=== PATIENT | female | born 1960 | race Caucasian/White ===

== ENCOUNTER 2022-04-06 12:47 | Outpatient (CLI) | payer BC, SELFPAY ==
--- NOTE | 2022-04-06 13:00 | CRLHL7_ITS ---
For Patients: As a result of the Century Cures Act, medical imaging exams and procedure reports are released immediately into your electronic medical record. You may view this report before your referring provider. If you have questions, please contact your health care provider. BILATERAL SCREENING MAMMOGRAM WITH COMPUTER-AIDED DETECTION AND TOMOSYNTHESIS TECHNIQUE: CC and MLO views were obtained. These mammographic images have been obtained using full-field digital technique. These mammographic images were interpreted with the benefit of computer-aided detection. Breast Tomosynthesis was used in this interpretation. COMPARISON FILM: 09/04/2020, 08/07/2018, 02/09/2017. FINDINGS: The breasts are heterogeneously dense, which may obscure small masses IMPRESSION: There is no radiographic evidence for malignancy. ASSESSMENT: BI-RADS Category 1: Negative RECOMMENDATION: Routine screening mammogram in 1 year. A lay language report of this examination will be provided to the patient. Mateo Membreno M.D. Diagnostic Radiologist [email or web address] Transcribed: 7:55 p.m. SWATHI/Dictated by: Mateo Membreno MD @ 04/07/2022 12:37:00 PM (Electronically Signed)
== END 2022-04-06 12:48 | disposition home or self-care (01) ==
PROVIDERS: PCP Internal Medicine; Visit Provider Internal Medicine
DX: Z12.31 Encounter for screening mammogram for malignant neoplasm of breast (principal); R92.2 Inconclusive mammogram
CPT/HCPCS: 77063; 77067

== ENCOUNTER 2022-07-05 08:25 | Outpatient (CLI) | payer BC, SELFPAY ==
[2022-07-05 10:05] LABS: Chloride* 105 mmol/L (96-114)
[2022-07-05 10:06] LABS: Albumin* 4.3 g/dL (3.3-5.0); Sodium* 139 mmol/L (135-149)
[2022-07-05 10:07] LABS: Potassium* 4.5 mmol/L (3.6-5.1)
[2022-07-05 10:08] LABS: Cholesterol* 190 mg/dL (90-199)
[2022-07-05 10:09] LABS: Alkaline Phosphatase* 71 U/L (40-150); Aspartate Amino Transferase* 33 U/L (12-35); Bilirubin Total* 0.6 mg/dL (0.1-1.5); Blood Urea Nitrogen* 19 mg/dL (7-30); Carbon Dioxide* 29 mmol/L (20-32); Creatinine* 0.7 mg/dL (0.5-1.5); Estimated Glomerular Filt Rate 99 ml/min; Glucose* 87 mg/dL (60-115); Total Protein* 6.6 g/dL (6.0-8.3)
[2022-07-05 10:10] LABS: Alanine Aminotransferase* 25 U/L (4-35); Calcium* 9.4 mg/dL (8.4-10.6); HDL Cholesterol* 84 mg/dL (>=50); LDL Cholesterol Calculated 96 mg/dL (<100); Triglycerides* 51 mg/dL (40-149)
== END 2022-07-05 08:26 | disposition home or self-care (01) ==
LOC: NFLDREF 08:26
PROVIDERS: PCP Internal Medicine; Visit Provider Internal Medicine
DX: Z01.419 Encounter for gynecological examination (general) (routine) without abnormal findings (principal); Z13.6 Encounter for screening for cardiovascular disorders
CPT/HCPCS: 80053; 80061

== ENCOUNTER 2022-08-16 10:11 | Outpatient (CLI) | payer BC, SELFPAY | END 2022-08-16 10:12 | disposition home or self-care (01) | LOC: OP CLINIC 10:11 | PROVIDERS: PCP Internal Medicine; Visit Provider Surgery | DX: Z12.11 Encounter for screening for malignant neoplasm of colon (principal); K63.5 Polyp of colon; K57.30 Diverticulosis of large intestine without perforation or abscess without bleeding; Z86.010 Personal history of colon polyps | CPT/HCPCS: 45385; 88305; 99153; J2250; J3010 ==

== ENCOUNTER 2023-02-22 09:00 | Emergency (ER) | payer BC, SELFPAY ==
--- NOTE | 2023-02-22 09:02 | CRLHL7_ITS ---
For Patients: As a result of the Century Cures Act, medical imaging exams and procedure reports are released immediately into your electronic medical record. You may view this report before your referring provider. If you have questions, please contact your health care provider. Indication: Seizure, neck Pain Technique: Volumetric multidetector CT images of the head were obtained without the administration of low osmolar intravenous contrast. Comparison: None available Findings: There is no intra-axial or extra-axial fluid collection. There is no mass effect or midline shift. The ventricles and sulci are normal in size and position for age. There is mild chronic small vessel disease change within the subcortical and periventricular white matter. The brain parenchyma is otherwise preserved and attenuation and [place]-white differentiation. The orbits and their contents are grossly within normal limits. The bony calvarium is grossly intact. There is minimal mucosal thickening within the paranasal sinuses. The mastoid air cells are well aerated. Impression: Mild chronic small vessel disease change within the white matter; otherwise, no acute intracranial abnormality. Please note that all CT scans at this facility use dose modulation, iterative reconstruction, and/or weight-based dosing when appropriate to reduce radiation dose to as low as reasonably achievable. Dictated by Fred Rahman MD @ 02/22/2023 9:33:43 AM (Electronically Signed)
[2023-02-22 09:04] VITALS: BP 131/75; PULSE 71; RESP 18; TEMP 36.4; O2SAT 98; BMI 18.4
--- NOTE | 2023-02-22 09:37 | CRLHL7_ITS ---
For Patients: As a result of the Century Cures Act, medical imaging exams and procedure reports are released immediately into your electronic medical record. You may view this report before your referring provider. If you have questions, please contact your health care provider. INDICATION: Syncope. Headaches. TECHNIQUE: Sagittal T1, axial FLAIR T2 diffusion-weighted and susceptibility weighted images followed by gadolinium-enhanced sagittal axial and coronal T1 weighted images. Qizz-mg-uuwepo magnetic resonance enter. Intracranial [place] arteries. Iotc-ll-iwmtsx and gadolinium-enhanced MRA images of the carotid arteries and vertebral arteries: COMPARISON: CT brain dated 05/24/2023. FINDINGS: MRI brain: Lateral 3rd and 4th ventricles normal in size and configuration. There is no evidence of acute ischemic infarction. There are no areas of diffusion restriction. There is no evidence of intracranial hemorrhage. No focal brain edema no enhancing intra-axial or extra-axial lesion. There are few punctate foci of nonenhancing FLAIR/T2 signal hyperintensity within supratentorial white matter consistent with mild chronic microvascular ischemia or changes related to migraine. Brainstem and cerebellum appear normal. The orbits sella turcica are unremarkable there is some localized inflammation in the dependent sphenoid sinus. MRA [place]: The distal internal carotid arteries and basilar artery appear widely patent origin of the right posterior cerebral artery. The anterior middle and posterior cerebral arteries and proximal branches are patent and unremarkable. No large vessel occlusion or high-grade stenosis. No evidence of intracranial aneurysm or high-flow AV malformation. MRA carotid arteries and vertebral arteries: Bilateral common carotid arteries internal and external carotid arteries are widely patent the bilateral vertebral arteries are patent the right is congenitally dominant. Hypoplastic distal left vertebral artery. IMPRESSION: 1. No evidence of acute ischemic infarction, intracranial hemorrhage, mass or enhancing lesion. 2. Several tiny foci of FLAIR/T2 hyperintensity consistent with mild chronic microvascular ischemia or changes related to migraine. 3. No large vessel occlusion, aneurysm or AVM involving proximal cerebral arteries is seen. 4. No evidence of stenosis of the carotid arteries or dominant right vertebral artery. Hypoplastic distal left vertebral artery. Dictated by Yaakov Aceves MD @ 02/22/2023 2:10:42 PM (Electronically Signed)
[2023-02-22] MEDS: LORazepam 2 MG/ML inj 1 MG IVP (10:11)
[2023-02-22] MEDS: ONDANSETRON 2 MG/ML inj 4 MG IVP (10:19)
[2023-02-22 10:21] VITALS: BP 131/77; PULSE 62; RESP 10; O2SAT 98
[2023-02-22] MEDS: ACETAMINOPHEN 500 MG TABLET 1000 MG PO (10:40)
--- NOTE | 2023-02-22 10:54 | ED.GENADULT ---
HPI - General Adult General Date Seen: 02/22/23 Chief complaint: Syncope/Fainted Stated complaint: seizure, neck pain Time Seen by Provider: 02/22/23 09:27 Source: patient Mode of arrival: ambulatory Limitations: no limitations History of Present Illness HPI narrative: Patient is a 62-year-old woman brought in by her after a syncopal episode at home. She was in her room by herself although her heard her fall. There was a question of seizure activity as there was some shaking behavior that lasted 10-20 seconds. Notably however when she woke up she was immediately mentating normally, there was no postictal. . She did not bite her tongue, there was no loss of bowel or bladder function. She has no history of seizures. She says that the episode was preceded by a sharp pain which started in her posterior left neck, at the base of her skull, and then seem to shoot down her entire body. This was severe. She says she has been having problems with pain in the left neck and shoulder, she saw her chiropractor yesterday for this and had some work done although she specifically says that she refuses any adjustment as her brother has had a stroke which was thought may be related to chiropractic adjustment. She continues to have some pain in her neck although if she does not move or push on that area she says it is very mild. She says if she moves specific way she will get a zing of pain. She does not have radiating pain, numbness or weakness. She does have a mild headache. She has some nausea, vomited a few times. She does not have significant dizziness. She denies any chest pain, palpitations, shortness of breath. She has no history of similar symptoms. There is a family history of stroke outside of her brother as well. She has some medical history in terms of depression, anxiety, but does not have any significant vascular history. She does not smoke. Related Data Home Medications Medication Instructions Recorded Confirmed cholecalciferol (vitamin D3) 25 1,000 unit PO DAILY 07/06/22 07/06/22 mcg (1,000 unit) tablet fluticasone propionate 50 1 intranasal BID 07/06/22 07/06/22 mcg/actuation nasal spray,suspension vitamin B comp with C no.4 150 mg 1 tab PO QDAY 07/06/22 07/06/22 tablet magnesium 200 mg tablet 250 mg PO QDAY 07/07/22 07/07/22 Previous Rx's Medication Instructions Recorded lorazepam 1 mg tablet 1 mg PO QDAY PRN anxiety #30 tabs 07/07/22 sertraline 100 mg tablet 100 - 200 mg (1 - 2 x 100 mg) PO 07/07/22 QDAY Anxiety #60 tabs peg 3350-electrolytes 236 240 ml PO ONCE #4,000 mL 07/23/22 gram-22.74 gram-6.74 gram-5.86 gram solution (Golytely) dicyclomine 10 mg capsule 10 mg PO QID PRN abdominal pain 10/20/22 #56 caps Allergies Allergy/AdvReac Type Severity Reaction Status Date / Time No Known Drug Allergies Allergy Verified 07/07/22 09:16 Review of Systems Status of ROS: Reports: 10 or more systems reviewed and unremarkable except as noted in History and below [facility] Medical History Abdominal pain ?R10.9 - Unspecified abdominal pain (ICD-10) History of chronic fatigue syndrome ?Z86.69 - Personal history of other diseases of the nervous system and sense organs (ICD-10) Encounter for well woman exam with routine gynecological exam ?Z01.419 - Encounter for gynecological examination (general) (routine) without abnormal findings (ICD-10) Anxiety ?F41.9 - Anxiety disorder, unspecified (ICD-10) Surgical History Status post laparoscopic appendectomy ?Z90.49 - Acquired absence of other specified parts of digestive tract (ICD-10) Status post cone biopsy of cervix ?Z98.890 - Other specified postprocedural states (ICD-10) History of local excision of skin lesion (2016) ?Z98.890 - Other specified postprocedural states (ICD-10) Family History Mother Diabetes Sister Family history of peritoneal cancer Father Stroke Paternal Grandfather Colon cancer Social History Narrative: , artist, educator Non-smoker social drinker Exercises regularly walks daily 1-3 miles Smoking Status: Never smoker Do you use any of these nicotine containing products: None How often do you have a drink containing alcohol: 2-3 times a week How many standard drinks containing alcohol do you have on a typical day: 1 or 2 How often do you have six or more drinks on one occasion: Never AUDIT-C Alcohol total score: 3 Non-prescribed substance use: denies use Little interest or pleasure in doing things: not at all Feeling down, depressed, or hopeless: not at all Exam Narrative: Exam Narrative: Vital signs as noted above. In general, an alert, well-appearing patient. She looks comfortable. Head: Normocephalic, atraumatic. Eyes: Pupils are equal reactive. Extraocular movements are full. Conjunctivae are normal. No nystagmus. ENT: Mucous membranes are moist. Throat is normal. Neck: Supple without lymphadenopathy. She has some tenderness of the musculature in the left side of her neck. Heart: Regular rate and rhythm. No murmur or rub. Lungs: Clear bilaterally. No increased work of breathing, crackles or wheezes. Abdomen: Soft and nontender. No organomegaly. Extremities: Well perfused. No edema. No calf tenderness. Pulses intact. Neurologic: Patient is alert and oriented to person and place. Speech is fluent. Face is symmetric. Moves all extremities equally. No ataxia. Affect: Normal. Skin: Warm and dry. Well perfused. Const: Vital Signs, click to edit/add: Vital Signs - 24 hr 02/22/23 09:04 02/22/23 10:21 02/22/23 11:30 Temperature 97.5 F L Pulse Rate [Pulse Oximeter] 71 62 Respiratory Rate 18 10 L Blood Pressure [Ri ght Upper Arm] 131/75 131/77 Blood Pressure [or thostatic lying] 118/74 Blood Pressure [or thostatic sitting] 122/79 Blood Pressure [or thostatic standing ] 122/76 Pulse Oximetry 98 98 Oxygen Delivery Me thod Room Air Room Air 02/22/23 13:16 02/22/23 15:04 Temperature Pulse Rate [Pulse Oximeter] 68 60 Respiratory Rate 10 L 12 Blood Pressure [Ri ght Upper Arm] 130/78 126/70 Blood Pressure [or thostatic lying] Blood Pressure [or thostatic sitting] Blood Pressure [or thostatic standing ] Pulse Oximetry 98 99 Oxygen Delivery Me thod Room Air Documenting provider has reviewed patient's vital signs: yes Course Course ED Course: On arrival in prior to my seeing the patient she had a head CT without contrast. This is negative for hemorrhage by my review. Final radiology read is likewise negative. Is unclear to me whether she had a true seizure. It does sound like there was some shaking according to her , and her eyes were somewhat rolled back, but it does not sound like there was any postictal period, he says that immediately on waking up she was completely with it, which is not very suggestive of seizure. I think it is possible that she had a syncopal episode, possibly vagal, with some myoclonic jerking. The neck pain and headache certainly raises the possibility of something like dissection, and I think we need to rule that out, I have ordered an MRI MRA so will evaluate vasculature and make sure there is no evidence of stroke. In the meantime, I have ordered some Ativan and Zofran to help treat her muscular pain and nausea. MRIs are all unremarkable, she has some small vessel ischemic changes but blood vessels are normal, no evidence of stroke or mass. She is feeling well at this time, she said the Ativan was very helpful for her neck. She does have Ativan at home and she could certainly use that at night if she wanted. Otherwise we talked about other therapy such as ice, heat, massage, ibuprofen and Tylenol. My suspicion for seizures relatively low, I think this point make sense have her follow up with primary care, if she has repeat spells return to the emergency department. She is comfortable this plan. Vital Signs Vital signs: Initial Vital Signs Temperature 97.5 F L 02/22/23 09:04 Temperature Source Temporal Artery Scan 02/22/23 09:04 Pulse Rate 71 02/22/23 09:04 Respiratory Rate 18 02/22/23 09:04 Blood Pressure 131/75 02/22/23 09:04 Blood Pressure Mean 93 02/22/23 09:04 Blood Pressure Position Supine 02/22/23 09:04 Pulse Oximetry 98 02/22/23 09:04 Oxygen Delivery Method Room Air 02/22/23 09:04 Vital Signs Temperature 97.5 F L 02/22/23 09:04 Pulse Rate 71 02/22/23 09:04 Respiratory Rate 18 02/22/23 09:04 Blood Pressure 131/75 02/22/23 09:04 Pulse Oximetry 98 02/22/23 09:04 Oxygen Delivery Method Room Air 02/22/23 09:04 Temperature 97.5 F L 02/22/23 09:04 Pulse Rate 60 02/22/23 15:04 Respiratory Rate 12 02/22/23 15:04 Blood Pressure 126/70 02/22/23 15:04 Pulse Oximetry 99 02/22/23 15:04 Oxygen Delivery Method Room Air 02/22/23 15:04 Discharge Plan Discharge Clinical Impression: Syncope, Neck pain Patient Disposition: Home, Self-Care Condition: Improved Instructions: Syncope (ED), Neck Pain (ED) Additional Instructions: Primary care follow-up in the next week for recheck. Return for recurrent symptoms or acute worsening. Ibuprofen 400 mg plus Tylenol 1000 mg 3 times daily with food. Flexeril if needed as a muscle relaxer. Ativan at night. Prescriptions: No Action cholecalciferol (vitamin D3) 25 mcg (1,000 unit) tablet 1,000 unit PO DAILY vitamin B comp with C no.4 150 mg tablet 1 tab PO QDAY fluticasone propionate 50 mcg/actuation spray,suspension 1 intranasal BID magnesium 200 mg tablet 250 mg PO QDAY lorazepam 1 mg tablet 1 mg PO QDAY PRN (Reason: anxiety) Qty: 30 0RF sertraline 100 mg tablet 100 - 200 mg PO QDAY Qty: 60 3RF peg 3350-electrolytes [Golytely] 236-22.74-6.74 -5.86 gram recon soln 240 ml PO ONCE Qty: 4000 0RF Rx Instructions: until fecal effluent is clear dicyclomine 10 mg capsule 10 mg PO QID PRN (Reason: abdominal pain) Qty: 56 0RF Follow Up/Referrals: Guillermo Barger MD [Primary Care Provider] - Stand Alone Forms: [employer] Info Instructions
[2023-02-22 11:30] VITALS: BP 118/74; BP 122/76; BP 122/79
[2023-02-22 13:16] VITALS: BP 130/78; PULSE 68; RESP 10; O2SAT 98
[2023-02-22 15:04] VITALS: BP 126/70; PULSE 60; RESP 12; O2SAT 99
== END 2023-02-22 15:17 | disposition home or self-care (01) ==
PROVIDERS: Emergency Provider Emergency Medicine; PCP Internal Medicine
DX: R55 Syncope and collapse (principal); M54.2 Cervicalgia
CPT/HCPCS: 70450; 70544; 70549; 70553; 96374; 96375; 99284; 99285; A9270; A9575; J2060; J2405

== ENCOUNTER 2023-08-04 08:50 | Outpatient (CLI) | payer BC, SELFPAY | END 2023-08-04 08:51 | disposition home or self-care (01) | LOC: NFLDREF 08-16 19:31 | PROVIDERS: PCP Internal Medicine; Referring Provider Internal Medicine; Visit Provider Internal Medicine | DX: E78.5 Hyperlipidemia, unspecified (principal) | CPT/HCPCS: 80053; 80061 ==

== ENCOUNTER 2023-08-09 13:25 | Outpatient (CLI) | payer BC, SELFPAY | END 2023-08-09 13:26 | disposition home or self-care (01) | LOC: NFLDREF 13:26 | PROVIDERS: PCP Internal Medicine; Visit Provider Internal Medicine | DX: R53.83 Other fatigue (principal); Z13.21 Encounter for screening for nutritional disorder | CPT/HCPCS: 82607 ==

== ENCOUNTER 2023-08-19 07:39 | Outpatient (CLI) | payer BC, SELFPAY ==
--- NOTE | 2023-08-19 07:45 | MM_ITS ---
Patient: SHALA MARTINEZ Facility:?[facility] Patient ID:?[id number] Site Patient ID:?[id number]. Site :?[id number] Study:?XRay-Breast Bilateral 3D screening mammogram w/cad-08/19/2023 8:47:30 AM Ordering Physician:MICHAEL Final Report: BILATERAL SCREENING MAMMOGRAM WITH COMPUTER-AIDED DETECTION AND TOMOSYNTHESIS TECHNIQUE: CC and MLO views were obtained. These mammographic images have been obtained using full-field digital technique. These mammographic images were interpreted with the benefit of computer-aided detection. Breast Tomosynthesis was used in this interpretation. COMPARISON FILM: 09/04/20, 08/07/18, 02/09/17. FINDINGS: The breasts are heterogeneously dense, which may obscure small masses. IMPRESSION: There is no radiographic evidence for malignancy. ASSESSMENT: BI-RADS Category 2: Benign RECOMMENDATION: Routine screening mammogram in 1 year. A lay language report of this examination will be provided to the patient. Mateo Membreno M.D. Diagnostic Radiologist [email or web address] DSM/sp R& Transcribed: 3:27 p.m. SP/Dictated by: Mateo Membreno MD @ 08/19/2023 1:11:00 PM Signed by:?Mateo Membreno MD @08/19/2023 3:54:28 PM (Electronic Signature)
== END 2023-08-19 07:40 | disposition home or self-care (01) ==
PROVIDERS: PCP Internal Medicine; Visit Provider Internal Medicine
DX: Z12.31 Encounter for screening mammogram for malignant neoplasm of breast (principal); R92.2 Inconclusive mammogram
CPT/HCPCS: 77063; 77067

== ENCOUNTER 2023-09-07 10:24 | Outpatient (CLI) | payer BC, SELFPAY ==
--- NOTE | 2023-09-07 10:30 | XR_ITS ---
Patient: SHALA MARTINEZ Facility:?[facility] Patient ID:?[id number] Site Patient ID:?[id number]. Site :?[id number] Study:?DEXA-Bone Density DEXA - SPINE/HIPS-09/07/2023 10:59:23 AM Ordering Physician:?JOS Final Report: DXA BONE MINERAL DENSITY STUDY Reason for exam: Osteopenia. Current height (in): 64.0. Weight (lb): 117.0. Menopause age: 54. Ethnicity: White. 1. Have you had a previous hip or vertebral fracture? No. 2. Have you had any fractures during your adult life which did not result from significant trauma (e.g., auto accident)? No. 3. Did either of your parents have a hip fracture? No. 4. Do you smoke? No. 5. Have you ever taken Glucocorticoids? Yes. 6. Do you have rheumatoid arthritis? No. 7. Do you have secondary osteoporosis? No. 8. Do you drink 3 or more alcoholic drinks per day? No. 9. Are you being treated for osteoporosis? No. 10. Have you ever taken any of the following medications: Actonel, Evista, Fosamax, Miacalcin, Reclast, Boniva, Forteo, HRT (i.e. estrogen/hormone therapy), Protelos, Prolia, Vitamin D, Calcium, other ? please specify. ANSWER: Yes, vitamin D, calcium. 11. Do you have any of the following medical conditions: Anorexia or bulimia, asthma or emphysema, end stage renal disease, hyperparathyroidism, any seizure disorders, cancer, inflammatory bowel diseases, hysterectomy, other ? please specify. ANSWER: Yes, cancer, inflammatory bowel disease, hysterectomy. 12. What was your maximum height (inches)? 64. 13. Do you perform weight bearing exercise regularly? Yes. 14. Do you regularly consume dairy products? Yes. 15. Do you drink caffeinated beverages? Yes. 16. At what age did your period start? 15. 17. Are you premenopausal? No. 18. How many full term pregnancies have you had? 1. 19. Have you ever missed your period for more than 6 months in a row (not including or menopause)? No. TECHNIQUE: Bone mineral density study was performed using the [employer]. FINDINGS: The results of the study expressed as bone mineral density (BMD) are as follows: Lumbar spine L1 to L4: BMD: 0.869 g/cm2. T-score: -1.6. Z-score: -0.1. Neck Left: BMD: 0.584 g/cm2. T-score: -2.4. Z-score: -1.0. Right: BMD: 0.561 g/cm2. T-score: -2.6. Z-score: -1.2. Total Left: BMD: 0.767 g/cm2. T-score: -1.4. Z-score: -0.4. Right: BMD: 0.743 g/cm2. T-score: -1.6. Z-score: -0.6. IMPRESSION: Osteoporosis. *Comparison exams done prior to 11/2019 were performed on different unit, [employer]. COMPARISON: Compared with scan of 09/04/2020, the bone mineral density has increased by 3.0 percent at the spine and decreased by 0.1 percent at the hip. Compared with scan of 03/01/2016, the bone mineral density has decreased by 13.5 percent at the spine and increased by 0.8 percent at the hip. STEVE FERNANDEZ M.D. SI:[email or web address] [email or web address] be/Dictated by: Steve Fernandez MD @ 09/08/2023 8:08:00 AM Signed by:?Steve Fernandez MD @09/09/2023 10:10:48 AM (Electronic Signature)
== END 2023-09-07 10:25 | disposition home or self-care (01) ==
PROVIDERS: PCP Internal Medicine; Visit Provider Obstetrics & Gynecology
DX: M85.80 Other specified disorders of bone density and structure, unspecified site (principal); M81.0 Age-related osteoporosis without current pathological fracture
CPT/HCPCS: 77080